=== PATIENT | female | born 1975 | race Caucasian/White ===

== ENCOUNTER 2018-01-30 08:30 | Inpatient (IN) | payer OTHER ==
[~2018-01-30] VITALS: Ht 157.5 cm; Wt 45.8 kg
[~2018-01-30 08:30] MED LIST: PREVACID30 M1 PO
[2018-02-07] MEDS ORDERED: OXYC1TAB9 PO (06:17)
[2018-02-07] MEDS ORDERED: CIPRO500 MG PO (06:17)
== END 2018-02-07 09:34 | disposition home or self-care (01) | DRG 743 ==
LOC: O/R 02-05 06:29 → OB/GYN 02-05 08:30
PROVIDERS: Obstetrics & Gynecology Gynecology
PROC: 0UT70ZZ Resection of Bilateral Fallopian Tubes, Open Approach (ICD-10-PCS; 2018-02-05)
PROC: 0US20ZZ Reposition Bilateral Ovaries, Open Approach (ICD-10-PCS; 2018-02-05)
PROC: 0UT90ZZ Resection of Uterus, Open Approach (ICD-10-PCS; principal; 2018-02-05 12:30)
DX: D25.1 Intramural leiomyoma of uterus (principal); D25.2 Subserosal leiomyoma of uterus; N72 Inflammatory disease of cervix uteri; N80.0 Endometriosis of uterus